=== PATIENT | female | born 1955 | race Caucasian/White ===

== ENCOUNTER → 2022-01-03 09:21 | Outpatient (CLI) | payer MEDICARE, SELFPAY ==
--- NOTE | ~2022-01-03 | MM_ITS ---
Corrected Report Order # Associated See Bolded Text 01/03/2022 [facility] EXAMINATION: MM diagnostic trevor RT w sunny; US breast RT limited HISTORY: Palpable lump in the upper right breast status post trauma, history of bilateral breast cancer TECHNIQUE: Craniocaudal, mediolateral, and mediolateral oblique 3-D tomosynthesis images of the right breast were performed and synthetic 2-D images were generated. CAD analysis was submitted and interpreted. High resolution limited right breast ultrasound was performed. COMPARISON: 02/05/2021, 01/31/2020, 10/19/2018 BREAST PARENCHYMAL COMPOSITION: There are scattered areas of fibroglandular density. FINDINGS: MAMMOGRAPHIC FINDINGS: There are changes of lumpectomy in the middle third of the outer breast at the 9:00 location 5 cm from the nipple. There is a new focal asymmetry in the middle third of the upper breast at the 12:00 location corresponding to the palpable abnormality of concern. There are some small areas of internal fat necrosis/oil cyst. No associated architectural distortion is identified. There is no focal mass ULTRASOUND: There are small cysts at the 1:00 location 3 cm from the nipple in the area of palpable concern measuring up to 6 mm. There are is general mild increased echogenicity in the region of palpable abnormality without discrete mass identified. IMPRESSION: 1. Probable resolving hematoma of the right breast corresponding to the area of clinical concern. 2. Recommend targeted right breast ultrasound in one month. Findings have not improved, ultrasound-guided biopsy would be recommended. BI-RADS category 4, suspicious findings. Reviewed, dictated and finalized at location A. MTDD IMPRESSION: 1. Probable resolving hematoma of the right breast corresponding to the area of clinical concern. 2. Recommend targeted right breast ultrasound in one month. Findings have not i mproved, ultrasound-guided biopsy would be recommended. BI-RADS category 4, suspicious findings.
== END ==
PROVIDERS: PCP Family Medicine; Visit Provider Physician Assistant Medical
DX: N60.01 Solitary cyst of right breast (principal); Z85.3 Personal history of malignant neoplasm of breast
CPT/HCPCS: 76642; 77061; 77065; G0279

== ENCOUNTER → 2022-07-21 09:56 | Outpatient (CLI) | payer MEDICARE, SELFPAY ==
--- NOTE | ~2022-07-21 | DEXA_ITS ---
Bone Density Report Name: TESHA LOPEZ Age: 67 Sex: Female Ethnicity: White Date of : 1955 Indication: postmenopausal; screening for osteoporosis; Referring Provider: Faby, Delilah Study: Bone densitometry was performed. Exam Date: July 21, 2022 Accession number: [id number] Bone Density: Region BMD T-score Z-score Classification AP Spine (L1-L4) 1.027 -0.2 1.7 Normal Femoral Neck (Left) 0.687 -1.5 0.1 Osteopenia Total Hip (Left) 0.906 -0.3 1.0 Normal Femoral Neck (Right) 0.787 -0.6 1.0 Normal Total Hip (Right) 0.926 -0.1 1.2 Normal Total Hip Mean 0.916 -0.2 1.1 Normal World Health Organization criteria for BMD impression classify patients as: Normal (T-score at or above -1.0), Osteopenia (T-score between -1.0 and -2.5), or Osteoporosis (T-score at or below -2.5). 10-year Fracture Risk(1): Major Osteoporotic Fracture 8.4% Hip Fracture 0.8% Reported Risk Factors: [place] (), Neck BMD=0.687, BMI=34.1 (1) FRAX(R) Version 3.08. Fracture probability calculated for an untreated patient. Fracture probability may be lower if the patient has received treatment. Previous Exams: Region Exam Age BMD T-score BMD Change BMD Change Date g/cm2 vs Baseline vs Previous AP Spine(L1-L4) 07/21/2022 67 1.027 -0.2 0.044* -0.010 01/01/2018 62 1.038 -0.1 0.054* -0.017 11/19/2014 59 1.054 0.1 0.071* 0.060* 09/24/2011 56 0.994 -0.5 0.011 0.011 01/05/2007 51 0.983 -0.6 Total Hip(Left) 07/21/2022 67 0.906 -0.3 -0.024 -0.053* 01/01/2018 62 0.959 0.1 0.030* 0.055* 11/19/2014 59 0.904 -0.3 -0.025 0.058* 09/24/2011 56 0.846 -0.8 -0.084* -0.084* 01/05/2007 51 0.929 -0.1 Total Hip(Right) 07/21/2022 67 0.926 -0.1 -0.026 -0.028* 01/01/2018 62 0.955 0.1 0.002 -0.035* 11/19/2014 59 0.989 0.4 0.037* 0.109* 09/24/2011 56 0.880 -0.5 -0.072* -0.072* 01/05/2007 51 0.952 0.1 *Denotes significance at 95% confidence level, LSC for AP Spine = 0.022 g/cm2, LSC for Total Hip = 0.027 g/cm2 Clinical Information Provided by Patient: Has used the following medications: Vitamin D Patient maximum height was 63.5 Menopause Age: 55 Drinks caffeinated beverages Onset of menses at age 15 Number of children 3
== END ==
PROVIDERS: PCP Family Medicine; Visit Provider Nurse Practitioner
DX: Z78.0 Asymptomatic menopausal state (principal); M85.852 Other specified disorders of bone density and structure, left thigh
CPT/HCPCS: 77080

== ENCOUNTER 2023-04-17 01:55 | Day surgery (SDC) | payer MEDICARE, SELFPAY ==
[2023-04-04 13:39] VITALS: BMI 33.7
[2023-04-17 08:17] VITALS: BP 123/64; PULSE 74; RESP 18; TEMP 36.1; O2SAT 96
[2023-04-17] MEDS: LACTATED RINGERS 1,000 ML 150 ML IV CONT (08:27)
--- NOTE | 2023-04-17 09:08 | PM.HPGS ---
History of Present Illness History of Present Illness Consent: Risks, benefits, and alternatives have been discussed and questions answered. Patient agrees to proceed with procedure. Chief complaint: neoplasm screening, family hx of neoplasm of diges Narrative: Lance Bermudez is a 67 year old female with last colonoscopy 5 years ago, father had colon cancer Review of Systems Constitutional: Constitutional: Denies headache(s) and Denies weakness Eyes: Eyes: Denies blurry vision ENT: Reports Normal hearing present, Denies headache(s) and Denies neck pain Cardiovascular: Cardiovascular: Denies chest pain and Denies dyspnea Respiratory: Respiratory: Denies dyspnea Gastrointestinal: Gastrointestinal: Reports no additional gastrointestinal complaints Genitourinary: Genitourinary: Denies dysuria Musculoskeletal: Musculoskeletal: Denies neck pain Integumentary/Breasts: Skin/Breast: Denies dry skin Neurologic: Reports Normal hearing present, Denies headache(s) and Denies weakness Psychiatric: Psychiatric: Denies anxiety Endocrine: Endocrine: Denies change in body appearance Hematologic/Lymphatic: Hematologic/Lymphatic: Denies easy bleeding Allergic/Immunologic: Allergic/Immunologic: Denies urticaria PMFSH Past Medical History Medical History BMI 32.0-32.9,adult BMI 33.0-33.9,adult BMI greater than 30 COVID-19 History of breast cancer Surgical History Surgical History History of bilateral breast reduction surgery History of lumpectomy of both breasts Family History Family History Father Carcinoma of colon Mother Hypertension Acute myocardial infarction Sibling Diabetes mellitus Other Asthma Breast cancer Heart disease Social History Social History Smoking status: Never smoker Second hand tobacco smoke exposure: No Alcohol intake: current Drinks per week: 2 Substance use: never Substance use type: does not use Lack of Transportation: No Lack of Food: Never True Current Housing: I Have Housing Concerned About Future Housing: No Difficulty Paying Gas/Electric Bills: No Difficulty Paying for Meds: No Currently Unemployed: No Education: High School Diploma/GED Difficulty w/ Childcare or Family Care: No Living arrangements: with family Occupation/Education: retired 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[employer] Gender identity (if verbalized by the patient): Female Spiritual care concerns: No Meds Home Medications and Allergies Home Medications Medication Instructions Recorded Confirmed Type cholecalciferol (vitamin D3) 1,250 1,250 mcg PO WEEKLY 11/24/20 04/05/23 History mcg (50,000 unit) capsule raloxifene 60 mg tablet 60 mg PO DAILY 11/24/20 04/05/23 History simvastatin 40 mg tablet 40 mg PO DAILY #90 tabs 04/18/22 04/05/23 Rx albuterol sulfate 90 mcg/actuation 1 inh inhalation Q4H PRN shortness 06/13/22 04/05/23 Rx aerosol inhaler (ProAir HFA) of breath or wheezing #6.7 grams hydrocortisone 2.5 % topical cream 1 applic topical BID PRN itching 12/12/22 04/05/23 Rx #28.35 grams lisinopril 20 mg tablet 20 mg PO DAILY #90 tabs 12/14/22 04/05/23 Rx metoprolol tartrate 25 mg tablet 25 mg PO BID #180 tabs 12/14/22 04/17/23 Rx montelukast 10 mg tablet See Rx Instructions .Route 12/14/22 04/05/23 Rx .COMPLEX #90 tabs betamethasone dipropionate 0.05 % 1 applic topical DAILY PRN eczema 01/09/23 04/05/23 History topical cream cetirizine 10 mg tablet (Zyrtec) 10 mg PO DAILY PRN Allergy Symptoms 01/09/23 04/05/23 History hydrochlorothiazide 12.5 mg tablet 12.5 mg PO DAILY #90 tabs 01/09/23 04/05/23 Rx mometasone 0.1 % topical cream 1 applic topical DAILY 01/09/23 04/05/23 History sertr
--- NOTE | 2023-04-17 09:11 | WPDANESEPPF ---
Anes - Initial Pre Proc Eval Procedure: Operation Date: 04/17/23 09:30 Proposed Procedures p Screening Colonoscopy - Rafael Carey MD Date/Time: 04/17/23 09:11 Surgeon: Rafael Carey MD Pre Op Diagnosis: neoplasm screening, family hx of neoplasm of diges Patient Data Age: 67 Gender: F Height: 1.6 m Weight: 85.7 kg Last Vital Signs Temp 97 F L 04/17/23 08:17 Pulse 74 04/17/23 08:17 Resp 18 04/17/23 08:17 BP 123/64 04/17/23 08:17 Pulse Ox 96 04/17/23 08:17 O2 Del Method Room Air 04/17/23 08:17 Allergies Allergy/AdvReac Type Severity Reaction Status Date / Time hydrocodone Allergy Unknown NAUSEA/VOMI Verified 04/17/23 08:16 TING erythromycin base AdvReac Unknown NAUSEA Verified 04/17/23 08:16 Home Medications Medication Instructions Recorded Confirmed Type cholecalciferol (vitamin D3) 1,250 1,250 mcg PO WEEKLY 11/24/20 04/05/23 History mcg (50,000 unit) capsule raloxifene 60 mg tablet 60 mg PO DAILY 11/24/20 04/05/23 History simvastatin 40 mg tablet 40 mg PO DAILY #90 tabs 04/18/22 04/05/23 Rx albuterol sulfate 90 mcg/actuation 1 inh inhalation Q4H PRN shortness 06/13/22 04/05/23 Rx aerosol inhaler (ProAir HFA) of breath or wheezing #6.7 grams hydrocortisone 2.5 % topical cream 1 applic topical BID PRN itching 12/12/22 04/05/23 Rx #28.35 grams lisinopril 20 mg tablet 20 mg PO DAILY #90 tabs 12/14/22 04/05/23 Rx metoprolol tartrate 25 mg tablet 25 mg PO BID #180 tabs 12/14/22 04/17/23 Rx montelukast 10 mg tablet See Rx Instructions .Route 12/14/22 04/05/23 Rx .COMPLEX #90 tabs betamethasone dipropionate 0.05 % 1 applic topical DAILY PRN eczema 01/09/23 04/05/23 History topical cream cetirizine 10 mg tablet (Zyrtec) 10 mg PO DAILY PRN Allergy Symptoms 01/09/23 04/05/23 History hydrochlorothiazide 12.5 mg tablet 12.5 mg PO DAILY #90 tabs 01/09/23 04/05/23 Rx mometasone 0.1 % topical cream 1 applic topical DAILY 01/09/23 04/05/23 History sertraline 50 mg tablet See Rx Instructions .Route 01/11/23 04/05/23 Rx .COMPLEX #90 tabs fluticasone propionate 50 1 spray intranasal BID #16 grams 03/30/23 04/05/23 Rx mcg/actuation nasal spray,suspension Patient hx anesthesia problems: none Family hx anesthesia problems: none Results Review: All pre-operative results and documents have been reviewed as part of the pre-operative evaluation. [facility] Past Medical History Medical History BMI 32.0-32.9,adult BMI 33.0-33.9,adult BMI greater than 30 COVID-19 History of breast cancer Surgical History Surgical History History of bilateral breast reduction surgery History of lumpectomy of both breasts Family History Family History Father Carcinoma of colon Mother Hypertension Acute myocardial infarction Sibling Diabetes mellitus Other Asthma Breast cancer Heart disease Social History Social History Smoking status: Never smoker Second hand tobacco smoke exposure: No Alcohol intake: current Drinks per week: 2 Substance use: never Substance use type: does not use Lack of Transportation: No Lack of Food: Never True Current Housing: I Have Housing Concerned About Future Housing: No Difficulty Paying Gas/Electric Bills: No Difficulty Paying for Meds: No Currently Unemployed: No Education: High School Diploma/GED Difficulty w/ Childcare or Family Care: No Living arrangements: with family Occupation/Education: retired 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
[2023-04-17 09:28] VITALS: BP 116/69; PULSE 70; RESP 16; O2SAT 98
[2023-04-17 09:38] VITALS: BP 104/73; PULSE 70; RESP 22; O2SAT 98
[2023-04-17 09:48] VITALS: BP 129/76; PULSE 70; RESP 20; O2SAT 98
== END 2023-04-17 10:02 | disposition home or self-care (01) ==
PROVIDERS: PCP Family Medicine; Visit Provider Internal Medicine Gastroenterology
PROC: 0DJD8ZZ Inspection of Lower Intestinal Tract, Via Natural or Artificial Opening Endoscopic (ICD-10-PCS; CPT 45378; principal; 2023-04-17 09:30)
DX: Z12.11 Encounter for screening for malignant neoplasm of colon (principal); K63.5 Polyp of colon; Z80.0 Family history of malignant neoplasm of digestive organs; Z79.51 Long term (current) use of inhaled steroids; Z85.3 Personal history of malignant neoplasm of breast; E66.9 Obesity, unspecified; Z68.33 Body mass index [BMI] 33.0-33.9, adult
CPT/HCPCS: 45380; 88305; J2704; J7120